=== PATIENT | female | born 1980 | race African-American/Black ===

== ENCOUNTER 2020-08-10 10:37 | Emergency (ER) | payer OTHER ==
[2020-08-10] MEDS ORDERED: Acetaminophen 500 MG TAB ONE (11:10)
== END 2020-08-10 11:15 | disposition home or self-care (01) ==
LOC: CSHERS 10:37
DX: N93.9 Abnormal uterine and vaginal bleeding, unspecified (principal); F22 Delusional disorders; F17.210 Nicotine dependence, cigarettes, uncomplicated
CPT/HCPCS: 99283

== ENCOUNTER 2021-04-07 11:35 | Day surgery (SDC) | payer OTHER ==
[2021-04-07] MEDS ORDERED: hydrALAZINE 20 MG/ML VIAL SLOW IVP PRN (12:13)
== END 2021-04-07 13:22 | disposition short-term general hospital (02) ==
LOC: CSHLD/OP 11:35
PROVIDERS: ATTEND Obstetrics & Gynecology
DX: F45.8 Other somatoform disorders (principal); I10 Essential (primary) hypertension; Z79.899 Other long term (current) drug therapy
CPT/HCPCS: 76815; 96374; 99282; J0360

== ENCOUNTER 2021-06-02 12:43 | Emergency (ER) | payer OTHER | END 2021-06-02 14:22 | LOC: CSHERS 12:43 | DX: Z53.21 Procedure and treatment not carried out due to patient leaving prior to being seen by health care provider (principal) | CPT/HCPCS: 84702 ==